=== PATIENT | male | born 1970 | race Caucasian/White ===

== ENCOUNTER 2021-03-31 00:29 | Day surgery (SDC) | payer OTHER ==
[~2021-03-31] VITALS: Ht 175.3 cm; Wt 84.3 kg
[2021-03-31] VITALS (8 sets, daily range): BP systolic 107–133; BP diastolic 78–93; PULSE 81–97; TEMP 97.6–98.1
--- NOTE | 2021-03-31 02:16 | NUR ---
Patient arrived to the unit, alert and oriented. VSS, complains of having a piece of meat in his throat. The meat makes him accumulate saliva and he has to spit constantly. But has not done that here yet. He has been trying to vomit but unable to get rid of it.
--- NOTE | 2021-03-31 02:34 | NUR ---
Patient states he had this problem since 1400 03/30/2011, after the first bite of his meal.
--- NOTE | 2021-03-31 06:21 | NUR ---
Patient has had a calm rest of the night. Still feels some food in the lower esophagus. Ready for procedure.
--- NOTE | 2021-03-31 06:39 | NUR ---
Patient was taken for his procedure.
--- NOTE | 2021-03-31 06:45 | NUR ---
Report received from HARVINDER Barry. PT in procedure, willl continue to monitor.
--- NOTE | 2021-03-31 08:03 | NUR ---
Assessment charted. PT awake and alert, doing well, feeling ready to discharge home. Friend will give ride home. Denies needs, IVF to R A/C.
--- NOTE | 2021-03-31 09:01 | NUR ---
Discharge completed at this time. INT dc'd, tip intact. Pt left via ambulation with medical staff. Friend to drive home. Reviewed packet, discharge instructions and f/u care. Pt left with all belongings, criteria met.
== END 2021-03-31 09:02 | disposition home or self-care (01) ==
LOC: SDCO 00:29 → MEDICAL 01:42 → SDCO 09:02
DX: K22.2 Esophageal obstruction (principal); T18.128A Food in esophagus causing other injury, initial encounter; K21.00 Gastro-esophageal reflux disease with esophagitis, without bleeding; Z79.899 Other long term (current) drug therapy; Z79.82 Long term (current) use of aspirin
CPT/HCPCS: OP; G0378; J2704; J7030